=== PATIENT | male | born 1985 | race Two or more races ===

== ENCOUNTER 2018-08-29 13:45 | Emergency (ER) | payer MEDICAID ==
[~2018-08-29] VITALS: Ht 162.6 cm; Wt 79.0 kg
[2018-08-29] MEDS ORDERED: CEFAZOLIN 1000MG PREMIX 50 ML IV ONE (14:45)
[2018-08-29] MEDS ORDERED: LIDOCAINE HCL/PF 1% 10 MG/ML 5ML VIAL IJ ONE (14:45)
[2018-08-29] MEDS ORDERED: BACITRACIN ZINC OINT UDPKT TOP ONE (14:45)
[2018-08-29] MEDS ORDERED: BACITRACIN 15GM TUBE TOP NR (15:00)
[2018-08-29] MEDS ORDERED: MORPHINE SULFATE 4 MG/ML CPJ (NOT FOR IM USE) IV ONE ×2 (16:00→17:00)
[2018-08-29 18:54] VITALS: BP 144/81
== END 2018-08-29 19:01 | disposition home or self-care (01) ==
LOC: ER 13:45
DX: S61.411A Laceration without foreign body of right hand, initial encounter (principal); X99.9XXA Assault by unspecified sharp object, initial encounter; Y93.89 Activity, other specified; Y92.488 Other paved roadways as the place of occurrence of the external cause
CPT/HCPCS: 12001; 73130; 96365; 96375; 96376; 99283; J0690; J2270; J3490; Z7610

== ENCOUNTER 2019-11-24 18:01 | Emergency (ER) | payer MEDICAID ==
[~2019-11-24] VITALS: Ht 162.6 cm; Wt 82.0 kg
[2019-11-24] MEDS ORDERED: MORPHINE SULFATE 10 MG/ML CPJ IM ONE (19:00)
[2019-11-24 20:04] VITALS: BP 133/95
== END 2019-11-24 20:05 | disposition home or self-care (01) ==
LOC: ER 18:01
DX: M54.40 Lumbago with sciatica, unspecified side (principal); G89.29 Other chronic pain; R03.0 Elevated blood-pressure reading, without diagnosis of hypertension
CPT/HCPCS: 96372; 99283; J2270

== ENCOUNTER 2020-01-27 14:13 | Emergency (ER) | payer MEDICAID ==
[~2020-01-27] VITALS: Ht 162.6 cm; Wt 81.0 kg
[2020-01-27] MEDS ORDERED: KETOROLAC 30MG/ML VIAL IV STA (16:34)
[2020-01-27] MEDS ORDERED: HYDROCODONE/ACETAMINOPHEN 5/325MG TABLET PO STA (16:34)
[2020-01-27] MEDS ORDERED: GABAPENTIN 300MG CAPSULE PO STA (16:34)
[2020-01-27 17:12] LABS: CLARITY URINE CLEAR (CLEAR); COLOR URINE YELLOW (YELLOW); KETONES URINE NEGATIVE (NEGATIVE); LEUKOCYTE ESTERASE URINE NEGATIVE (NEGATIVE); NITRITE URINE NEGATIVE (NEGATIVE); OCCULT BLOOD URINE NEGATIVE (NEGATIVE); PROTEIN URINE NEGATIVE (NEGATIVE); SPECIFIC GRAVITY URINE 1.017 (1.005-1.030); UROBILINOGEN URINE 0.2 E.U./dL (0.2-1.0)
[2020-01-27 17:38] LABS: BASOPHILS % 0.7 % (0.0-2.0); HEMATOCRIT. 47.6 % (42.0-52.0); HEMOGLOBIN. 16.4 g/dL (14.0-18.0); MEAN CORPUSCULAR HEMOGLOBIN 33.6 pg (28.0-32.0); MEAN CORPUSCULAR VOLUME 97.4 fL (80.0-94.0); MEAN PLATELET VOLUME 8.1 fl (7.4-10.4); MONOCYTES % 10.5 % (2.0-8.0); NEUTROPHILS % 54.8 % (40.0-76.0); PLATELET 172 x1000/uL (130-400); RED BLOOD CELL COUNT 4.89 mill/uL (4.7-6.1); RED CELL DISTRIBUTION WIDTH 13.2 % (11.6-14.6)
[2020-01-27 17:46] LABS: CHLORIDE 108 mEq/L (98-107)
[2020-01-27] MEDS ORDERED: HYDROMORPHONE HCL/PF 2MG/ML CPJ IV ONE (21:00)
[2020-01-27] MEDS ORDERED: ONDANSETRON HCL 4MG/2ML INJ IV ONE (21:45)
[2020-01-28] MEDS ORDERED: MORPHINE SULFATE 4 MG/ML CPJ (NOT FOR IM USE) IV ONE (00:15)
[2020-01-28 01:26] VITALS: BP 136/84
== END 2020-01-28 01:27 | disposition home or self-care (01) ==
LOC: ER 14:13
DX: M54.42 Lumbago with sciatica, left side (principal)
CPT/HCPCS: 36415; 80053; 81003; 85025; 96374; 96375; 99284; J1170; J1885; J2270; J2405

== ENCOUNTER 2020-06-15 10:36 | Emergency (ER) | payer MEDICAID ==
[~2020-06-15] VITALS: Ht 165.1 cm; Wt 81.0 kg
[2020-06-15 11:45] LABS: CLARITY URINE CLEAR (CLEAR); COLOR URINE DARK YELLOW (YELLOW); KETONES URINE TRACE (NEGATIVE); LEUKOCYTE ESTERASE URINE NEGATIVE (NEGATIVE); NITRITE URINE NEGATIVE (NEGATIVE); OCCULT BLOOD URINE TRACE (NEGATIVE); PROTEIN URINE 2+ (NEGATIVE); SPECIFIC GRAVITY URINE 1.016 (1.005-1.030)
[2020-06-15 11:48] LABS: BASOPHILS % 0.8 % (0.0-2.0); EOSINOPHILS % 1.3 % (0.0-5.0); HEMATOCRIT. 48.8 % (42.0-52.0); HEMOGLOBIN. 16.9 g/dL (14.0-18.0); LYMPHOCYTES % 35.9 % (20.0-50.0); MEAN CORPUSCULAR HEMOGLOBIN 32.9 pg (28.0-32.0); MEAN CORPUSCULAR VOLUME 95.1 fL (80.0-94.0); MONOCYTES % 8.9 % (2.0-8.0); NEUTROPHILS % 53.1 % (40.0-76.0); PLATELET 201 x1000/uL (130-400); RED BLOOD CELL COUNT 5.14 mill/uL (4.7-6.1); RED CELL DISTRIBUTION WIDTH 13.7 % (11.6-14.6)
[2020-06-15 11:52] LABS: CHLORIDE 103 mEq/L (98-107)
[2020-06-15 11:53] LABS: INR 1.1; PROTHROMBIN TIME 11.7 sec (9.6-11.0)
[2020-06-15 11:57] LABS: *AMPHETAMINES SCREEN URINE NEGATIVE (NEGATIVE); *BARBITURATES SCREEN URINE NEGATIVE (NEGATIVE); *COCAINE SCREEN URINE NEGATIVE (NEGATIVE); CANNABINOID URINE SCREEN NEGATIVE (NEGATIVE); METHADONE URINE SCREEN NEGATIVE (NEGATIVE); OPIATES URINE SCREEN NEGATIVE (NEGATIVE); PHENCYCLIDINE URINE SCREEN NEGATIVE (NEGATIVE)
[2020-06-15 11:57] LABS: ETHANOL BLOOD 258 mg/dL
[2020-06-15 11:58] LABS: *BENZODIAZEPINES SCREEN URINE NEGATIVE (NEGATIVE)
[2020-06-15] MEDS ORDERED: KETOROLAC 60MG/2ML VIAL IM ONE (13:15)
[2020-06-15] MEDS ORDERED: OXYCODONE HCL/ACETAMINOPHEN 5/325MG TABLET PO ONE (13:15)
[2020-06-15] MEDS ORDERED: ONDANSETRON 4MG ODT PO ONE (13:15)
[2020-06-15] MEDS ORDERED: DICL50TA9 MT (13:18)
[2020-06-15] MEDS ORDERED: OXYC-100 MT (13:18)
[2020-06-15 14:46] VITALS: BP 159/97
== END 2020-06-15 14:54 | disposition home or self-care (01) ==
LOC: ER 10:36
DX: G89.29 Other chronic pain (principal); M54.40 Lumbago with sciatica, unspecified side; I49.9 Cardiac arrhythmia, unspecified
CPT/HCPCS: 36415; 71045; 80053; 80305; 80320; 81003; 83690; 85025; 85610; 93005; 96372; 99285; A4217; J1885; Q0162; Z7610; G0480

== ENCOUNTER 2020-07-01 07:21 | Emergency (ER) | payer MEDICAID ==
[~2020-07-01] VITALS: Ht 167.6 cm; Wt 75.0 kg
[~2020-07-01 07:21] MED LIST: DICL50TA9 MT; OXYC-100 MT
[2020-07-01] MEDS ORDERED: ONDANSETRON HCL 4MG/2ML INJ IV STA (07:55)
[2020-07-01] MEDS ORDERED: LORAZEPAM 2MG/ML CPJ IV ONE (08:00)
[2020-07-01] MEDS ORDERED: SODIUM CHLORIDE 0.9% 1,000 ML IV ONE (08:00)
[2020-07-01] MEDS ORDERED: FAMOTIDINE 20MG/2ML VIAL IV ONE (08:00)
[2020-07-01 08:12] LABS: BASOPHILS % 0.9 % (0.0-2.0); EOSINOPHILS % 0.9 % (0.0-5.0); HEMATOCRIT. 48.6 % (42.0-52.0); HEMOGLOBIN. 16.4 g/dL (14.0-18.0); LYMPHOCYTES % 26.6 % (20.0-50.0); MEAN CORPUSCULAR HEMOGLOBIN 32.6 pg (28.0-32.0); MEAN CORPUSCULAR VOLUME 96.6 fL (80.0-94.0); MEAN PLATELET VOLUME 6.7 fl (7.4-10.4); NEUTROPHILS % 63.6 % (40.0-76.0); PLATELET 275 x1000/uL (130-400); RED BLOOD CELL COUNT 5.03 mill/uL (4.7-6.1); RED CELL DISTRIBUTION WIDTH 13.5 % (11.6-14.6)
[2020-07-01 08:17] LABS: CHLORIDE 103 mEq/L (98-107)
[2020-07-01 08:21] LABS: ETHANOL BLOOD 66 mg/dL
[2020-07-01] MEDS ORDERED: MAGNESIUM/ALUMINUM HYDROXIDE/SIMETHICONE 30ML UDC PO STA (09:40)
[2020-07-01] MEDS ORDERED: VISCOUS LIDOCAINE 2% 15 ML UDC PO STA (09:40)
[2020-07-01 09:52] LABS: CLARITY URINE CLEAR (CLEAR); COLOR URINE YELLOW (YELLOW); KETONES URINE 1+ (NEGATIVE); LEUKOCYTE ESTERASE URINE TRACE (NEGATIVE); NITRITE URINE NEGATIVE (NEGATIVE); OCCULT BLOOD URINE NEGATIVE (NEGATIVE); PROTEIN URINE TRACE (NEGATIVE)
[2020-07-01 10:07] LABS: *BARBITURATES SCREEN URINE NEGATIVE (NEGATIVE); *BENZODIAZEPINES SCREEN URINE NEGATIVE (NEGATIVE); *COCAINE SCREEN URINE NEGATIVE (NEGATIVE)
[2020-07-01 10:08] LABS: CANNABINOID URINE SCREEN NEGATIVE (NEGATIVE); METHADONE URINE SCREEN NEGATIVE (NEGATIVE); OPIATES URINE SCREEN NEGATIVE (NEGATIVE); PHENCYCLIDINE URINE SCREEN NEGATIVE (NEGATIVE)
[2020-07-01 10:09] LABS: *AMPHETAMINES SCREEN URINE NEGATIVE (NEGATIVE)
[2020-07-01] MEDS ORDERED: IOHEXOL-300 100 ML BOTTLE ONE (11:13)
[2020-07-01] MEDS ORDERED: IBUP-2028 MT (11:31)
[2020-07-01] MEDS ORDERED: ONDA4TAB5 MT (11:31)
[2020-07-01] MEDS ORDERED: AMOX-424 MT (11:31)
[2020-07-01] MEDS ORDERED: HYDROCODONE/ACETAMINOPHEN 5/325MG TABLET PO ONE (12:00)
[2020-07-01 12:07] VITALS: BP 128/86
== END 2020-07-01 12:45 | disposition home or self-care (01) ==
LOC: ER 07:21
DX: K52.9 Noninfective gastroenteritis and colitis, unspecified (principal); K80.80 Other cholelithiasis without obstruction; M54.30 Sciatica, unspecified side; F17.210 Nicotine dependence, cigarettes, uncomplicated; F10.10 Alcohol abuse, uncomplicated; Y90.3 Blood alcohol level of 60-79 mg/100 ml
CPT/HCPCS: 36415; 71045; 74177; 80053; 80305; 80320; 81003; 83690; 84484; 85025; 96361; 96374; 96375; 99285; J2060; J2405; J3490; J7030; Q9967; Z7610; G0480

== ENCOUNTER 2020-09-20 11:02 | Inpatient (IN) | payer MEDICAID ==
[~2020-09-20] VITALS: Ht 165.1 cm; Wt 80.7 kg
[~2020-09-20 11:02] MED LIST changes: +AMOX-424 MT; +IBUP-2028 MT; +ONDA4TAB5 MT
[2020-09-20] MEDS ORDERED: MORPHINE SULFATE 4 MG/ML CPJ (NOT FOR IM USE) IV STA (12:33)
[2020-09-20] MEDS ORDERED: ONDANSETRON HCL 4MG/2ML INJ IV STA (12:33)
[2020-09-20] MEDS ORDERED: SODIUM CHLORIDE 0.9% 1000ML BAG (SEPSIS BOLUS) IV ONE (12:45)
[2020-09-20] MEDS ORDERED: VISCOUS LIDOCAINE 2% 15 ML UDC MM ONE (13:00)
[2020-09-20] MEDS ORDERED: MAGNESIUM/ALUMINUM HYDROXIDE/SIMETHICONE 30ML UDC PO ONE (13:00)
[2020-09-20] MEDS ORDERED: FAMOTIDINE 20MG/2ML VIAL IV ONE ×2 (13:00→20:00)
[2020-09-20 13:27] LABS: BASOPHILS % 0.5 % (0.0-2.0); EOSINOPHILS % 0.3 % (0.0-5.0); HEMATOCRIT. 47.6 % (42.0-52.0); HEMOGLOBIN. 16.2 g/dL (14.0-18.0); LYMPHOCYTES % 20.6 % (20.0-50.0); MEAN CORPUSCULAR HEMOGLOBIN 32.3 pg (28.0-32.0); MEAN CORPUSCULAR VOLUME 94.7 fL (80.0-94.0); MEAN PLATELET VOLUME 7.2 fl (7.4-10.4); MONOCYTES % 8.4 % (2.0-8.0); NEUTROPHILS % 70.2 % (40.0-76.0); PLATELET 270 x1000/uL (130-400); RED BLOOD CELL COUNT 5.03 mill/uL (4.7-6.1); RED CELL DISTRIBUTION WIDTH 12.9 % (11.6-14.6)
[2020-09-20 13:30] LABS: CHLORIDE 106 mEq/L (98-107)
[2020-09-20 13:35] LABS: INR 1.1; PROTHROMBIN TIME 11.6 sec (9.6-11.0)
[2020-09-20 14:45] LABS: CLARITY URINE CLEAR (CLEAR); COLOR URINE YELLOW (YELLOW); KETONES URINE NEGATIVE (NEGATIVE); LEUKOCYTE ESTERASE URINE NEGATIVE (NEGATIVE); NITRITE URINE NEGATIVE (NEGATIVE); OCCULT BLOOD URINE NEGATIVE (NEGATIVE); PROTEIN URINE NEGATIVE (NEGATIVE); SPECIFIC GRAVITY URINE 1.011 (1.005-1.030)
[2020-09-20] MEDS ORDERED: HYDROMORPHONE HCL/PF 2MG/ML CPJ IV NR (17:45)
[2020-09-20] MEDS ORDERED: ONDANSETRON HCL 4MG/2ML INJ IV ONE (20:00)
[2020-09-20] MEDS: SUCRALFATE 1 G/10 ML UDC PO SCH (21:25)
[2020-09-20 23:55] VITALS: BP 143/92
[2020-09-21] MEDS ORDERED: FAMO-135 MT (00:51)
[2020-09-21] MEDS ORDERED: HYDR-4009 MT (00:51)
[2020-09-21] MEDS ORDERED: DIAZ5TAB MT (00:51)
[2020-09-21] MEDS ORDERED: IBUP-2030 MT (00:51)
[2020-09-21 00:52] VITALS: BP 144/92
[2020-09-21] MEDS ORDERED: PNEUMOCOCCAL 23-VAL P-SAC VAC 0.5 ML IM ONE (02:00)
[2020-09-21 04:00] VITALS: BP 141/87
[2020-09-21] MEDS ORDERED: ACETAMINOPHEN 650MG SUPP PR PRN (06:30)
[2020-09-21] MEDS: SUCRALFATE 1 G/10 ML UDC PO SCH ×4 (06:30→22:51)
[2020-09-21] MEDS ORDERED: NALOXONE HCL 0.4MG/ML VIAL IV PRN (06:45)
[2020-09-21 06:49] LABS: CHLORIDE 101 mEq/L (98-107)
[2020-09-21] MEDS: MORPHINE SULFATE 2 MG/ML CPJ (NOT FOR IM USE) IV PRN (06:57)
[2020-09-21 07:05] LABS: BASOPHILS % 0.3 % (0.0-2.0); EOSINOPHILS % 1.4 % (0.0-5.0); HEMATOCRIT. 45.2 % (42.0-52.0); HEMOGLOBIN. 15.2 g/dL (14.0-18.0); LYMPHOCYTES % 22.2 % (20.0-50.0); MEAN CORPUSCULAR HEMOGLOBIN 32.6 pg (28.0-32.0); MEAN CORPUSCULAR VOLUME 96.5 fL (80.0-94.0); MEAN PLATELET VOLUME 7.7 fl (7.4-10.4); MONOCYTES % 7.1 % (2.0-8.0); PLATELET 206 x1000/uL (130-400); RED BLOOD CELL COUNT 4.68 mill/uL (4.7-6.1); RED CELL DISTRIBUTION WIDTH 12.8 % (11.6-14.6)
[2020-09-21 08:00] VITALS: BP 148/98
[2020-09-21] MEDS: ONDANSETRON HCL 4MG/2ML INJ IV PRN ×2 (09:22→21:51)
[2020-09-21] MEDS: HYDROMORPHONE HCL/PF 2MG/ML CPJ IV PRN ×3 (09:24→21:52)
[2020-09-21 12:00] VITALS: BP 156/102
[2020-09-21] MEDS: DEXT 5%/0.45% NACL 1000ML 1,000 ML IV SCH ×2 (13:32→21:58)
[2020-09-21 16:00] VITALS: BP 155/101
[2020-09-21 20:00] VITALS: BP 147/92
[2020-09-22] VITALS: BP 150/98
[2020-09-22 04:00] VITALS: BP 153/95
[2020-09-22] MEDS: HYDROMORPHONE HCL/PF 2MG/ML CPJ IV PRN ×2 (04:50→11:26)
[2020-09-22] MEDS: SUCRALFATE 1 G/10 ML UDC PO SCH ×2 (06:31→13:33)
[2020-09-22 06:48] LABS: BASOPHILS % 0.3 % (0.0-2.0); HEMATOCRIT. 43.2 % (42.0-52.0); LYMPHOCYTES % 24.8 % (20.0-50.0); MEAN CORPUSCULAR HEMOGLOBIN 33.2 pg (28.0-32.0); MEAN CORPUSCULAR VOLUME 95.8 fL (80.0-94.0); MEAN PLATELET VOLUME 7.9 fl (7.4-10.4); MONOCYTES % 8.6 % (2.0-8.0); NEUTROPHILS % 64.3 % (40.0-76.0); PLATELET 207 x1000/uL (130-400); RED BLOOD CELL COUNT 4.51 mill/uL (4.7-6.1); RED CELL DISTRIBUTION WIDTH 12.8 % (11.6-14.6)
[2020-09-22 07:03] LABS: CHLORIDE 102 mEq/L (98-107)
[2020-09-22] MEDS: MORPHINE SULFATE 2 MG/ML CPJ (NOT FOR IM USE) IV PRN (13:50)
[2020-09-22] MEDS ORDERED: CLONIDINE 0.1MG TABLET PO PRN (17:00)
[2020-09-22] MEDS ORDERED: LORAZEPAM 2MG/ML CPJ IV PRN (17:00)
[2020-09-22 18:44] VITALS: BP 147/100
== END 2020-09-22 19:10 | disposition home or self-care (01) ==
LOC: ER 11:02 → MICUSO 21:12 → 6EST 23:03
PROVIDERS: ADMIT Hospitalist; ATTEND Hospitalist
DX: K80.00 Calculus of gallbladder with acute cholecystitis without obstruction (principal); K76.0 Fatty (change of) liver, not elsewhere classified; F12.90 Cannabis use, unspecified, uncomplicated; Z20.822 Contact with and (suspected) exposure to COVID-19; F17.200 Nicotine dependence, unspecified, uncomplicated; Z79.1 Long term (current) use of non-steroidal anti-inflammatories (NSAID); Z79.891 Long term (current) use of opiate analgesic
CPT/HCPCS: 36415; 71045; 74176; 74181; 76705; 78227; 80053; 81003; 83605; 84145; 84484; 85025; 93005; 99285; A9537; C1893; J1170; J2060; J2270; J2405; J3490; J7030; U0003; U0005

== ENCOUNTER 2020-09-28 12:34 | Emergency (ER) | payer MEDICAID ==
[~2020-09-28] VITALS: Ht 162.6 cm; Wt 85.0 kg
[~2020-09-28 12:34] MED LIST changes: +DIAZ5TAB MT; +FAMO-135 MT; +HYDR-4009 MT; +IBUP-2030 MT
[2020-09-28] MEDS ORDERED: ONDANSETRON HCL 4MG/2ML INJ IV ONE (16:00)
[2020-09-28] MEDS ORDERED: SODIUM CHLORIDE 0.9% 1,000 ML IV ONE (16:00)
[2020-09-28 16:17] LABS: BASOPHILS % 0.4 % (0.0-2.0); EOSINOPHILS % 0.2 % (0.0-5.0); HEMATOCRIT. 47.1 % (42.0-52.0); LYMPHOCYTES % 16.2 % (20.0-50.0); MEAN CORPUSCULAR HEMOGLOBIN 32.1 pg (28.0-32.0); MEAN CORPUSCULAR VOLUME 94.4 fL (80.0-94.0); MEAN PLATELET VOLUME 7.1 fl (7.4-10.4); MONOCYTES % 9.2 % (2.0-8.0); PLATELET 217 x1000/uL (130-400); RED BLOOD CELL COUNT 4.99 mill/uL (4.7-6.1)
[2020-09-28 16:22] LABS: CHLORIDE 101 mEq/L (98-107)
[2020-09-28] MEDS ORDERED: MAGNESIUM/ALUMINUM HYDROXIDE/SIMETHICONE 30ML UDC PO STA (17:00)
[2020-09-28] MEDS ORDERED: PROT40 MT (18:58)
[2020-09-28] MEDS ORDERED: PANTOPRAZOLE 40MG DR TABLET PO ONE (19:00)
[2020-09-28 19:05] VITALS: BP 139/74
== END 2020-09-28 19:08 | disposition home or self-care (01) ==
LOC: ER 17:29
DX: K21.9 Gastro-esophageal reflux disease without esophagitis (principal); F12.10 Cannabis abuse, uncomplicated; Z79.899 Other long term (current) drug therapy
CPT/HCPCS: 36415; 71045; 80053; 83690; 84484; 85025; 93005; 96361; 96374; 99285; J2405; J7030; Z7610

== ENCOUNTER 2020-10-11 06:46 | Inpatient (IN) | payer MEDICAID ==
[~2020-10-11] VITALS: Ht 160 cm; Wt 88.5 kg
[~2020-10-11 06:46] MED LIST changes: +PROT40 MT
[2020-10-11] MEDS ORDERED: ONDANSETRON HCL 4MG/2ML INJ IV STA (08:06)
[2020-10-11] MEDS ORDERED: MORPHINE SULFATE 4 MG/ML CPJ (NOT FOR IM USE) IV STA (08:06)
[2020-10-11 08:45] LABS: BASOPHILS % 0.5 % (0.0-2.0); EOSINOPHILS % 0.4 % (0.0-5.0); HEMATOCRIT. 44.4 % (42.0-52.0); HEMOGLOBIN. 15.3 g/dL (14.0-18.0); LYMPHOCYTES % 15.6 % (20.0-50.0); MEAN CORPUSCULAR HEMOGLOBIN 32.2 pg (28.0-32.0); MEAN CORPUSCULAR VOLUME 93.8 fL (80.0-94.0); MEAN PLATELET VOLUME 6.8 fl (7.4-10.4); MONOCYTES % 7.7 % (2.0-8.0); NEUTROPHILS % 75.8 % (40.0-76.0); PLATELET 364 x1000/uL (130-400); RED BLOOD CELL COUNT 4.73 mill/uL (4.7-6.1); RED CELL DISTRIBUTION WIDTH 13.3 % (11.6-14.6)
[2020-10-11 08:48] LABS: CHLORIDE 106 mEq/L (98-107)
[2020-10-11 08:56] LABS: INR 1.1; PROTHROMBIN TIME 12.2 sec (9.6-11.0)
[2020-10-11] MEDS ORDERED: MORPHINE SULFATE 4 MG/ML CPJ (NOT FOR IM USE) IV ONE (09:45)
[2020-10-11] MEDS ORDERED: DIPHENHYDRAMINE 50MG/ML VIAL IV PRN (12:00)
[2020-10-11] MEDS ORDERED: CLONIDINE 0.1MG TABLET PO PRN (12:00)
[2020-10-11] MEDS ORDERED: IPRATROPIUM/ALBUTEROL 0.5-3(2.5)MG/3ML NEB HHN PRN (12:00)
[2020-10-11] MEDS ORDERED: MAGNESIUM/ALUMINUM HYDROXIDE/SIMETHICONE 30ML UDC PO PRN (12:00)
[2020-10-11] MEDS ORDERED: HYDRALAZINE 20MG/ML VIAL IV PRN (12:00)
[2020-10-11] MEDS ORDERED: GUAIFENESIN 200MG/10ML SUGAR FREE UDC PO PRN (12:00)
[2020-10-11] MEDS: DEXT 5%/0.45% NACL 1000ML 1,000 ML IV SCH (12:08)
[2020-10-11] MEDS: ENOXAPARIN 40MG/0.4ML SYR SUBCUT SCH (13:36)
[2020-10-11] MEDS: SODIUM CHLORIDE 0.9% INJ 3ML FLUSH IVF SCH ×2 (13:36→21:33)
[2020-10-11 15:00] VITALS: BP 148/103
[2020-10-11] MEDS: PANTOPRAZOLE SODIUM 40 MG/VIAL IV SCH (15:05)
[2020-10-11 15:37] VITALS: BP 148/103
[2020-10-11] MEDS ORDERED: NALOXONE HCL 0.4MG/ML VIAL IV PRN (16:15)
[2020-10-11] MEDS: MORPHINE SULFATE 2 MG/ML CPJ (NOT FOR IM USE) IV PRN (16:37)
[2020-10-11] MEDS: ONDANSETRON HCL 4MG/2ML INJ IV PRN (16:42)
[2020-10-11 17:46] LABS: CLARITY URINE CLEAR (CLEAR); COLOR URINE YELLOW (YELLOW); KETONES URINE TRACE (NEGATIVE); LEUKOCYTE ESTERASE URINE NEGATIVE (NEGATIVE); NITRITE URINE NEGATIVE (NEGATIVE); OCCULT BLOOD URINE TRACE (NEGATIVE); PROTEIN URINE NEGATIVE (NEGATIVE); SPECIFIC GRAVITY URINE 1.015 (1.005-1.030)
[2020-10-11 20:00] VITALS: BP 143/84
[2020-10-11 21:28] LABS: *COCAINE SCREEN URINE NEGATIVE (NEGATIVE)
[2020-10-11 21:29] LABS: *AMPHETAMINES SCREEN URINE NEGATIVE (NEGATIVE); *BARBITURATES SCREEN URINE NEGATIVE (NEGATIVE); CANNABINOID URINE SCREEN NEGATIVE (NEGATIVE); METHADONE URINE SCREEN NEGATIVE (NEGATIVE); OPIATES URINE SCREEN PRESUMTIVE POSITIVE (NEGATIVE)
[2020-10-11 21:30] LABS: *BENZODIAZEPINES SCREEN URINE NEGATIVE (NEGATIVE); PHENCYCLIDINE URINE SCREEN NEGATIVE (NEGATIVE)
[2020-10-12] VITALS (8 sets, daily range): BP systolic 121–147; BP diastolic 74–95
[2020-10-12] MEDS: MORPHINE SULFATE 2 MG/ML CPJ (NOT FOR IM USE) IV PRN ×4 (00:11→20:17)
[2020-10-12] MEDS: DEXT 5%/0.45% NACL 1000ML 1,000 ML IV SCH ×2 (04:45→21:29)
[2020-10-12] MEDS: SODIUM CHLORIDE 0.9% INJ 3ML FLUSH IVF SCH ×3 (05:32→21:29)
[2020-10-12] MEDS: PANTOPRAZOLE SODIUM 40 MG/VIAL IV SCH (07:49)
[2020-10-12 08:36] LABS: BASOPHILS % 0.5 % (0.0-2.0); EOSINOPHILS % 1.8 % (0.0-5.0); HEMATOCRIT. 44.2 % (42.0-52.0); HEMOGLOBIN. 15.3 g/dL (14.0-18.0); MEAN CORPUSCULAR HEMOGLOBIN 33.1 pg (28.0-32.0); MEAN CORPUSCULAR VOLUME 95.4 fL (80.0-94.0); NEUTROPHILS % 64.7 % (40.0-76.0); PLATELET 350 x1000/uL (130-400); RED BLOOD CELL COUNT 4.63 mill/uL (4.7-6.1); RED CELL DISTRIBUTION WIDTH 13.4 % (11.6-14.6)
[2020-10-12 09:13] LABS: CHLORIDE 102 mEq/L (98-107)
[2020-10-12] MEDS: ENOXAPARIN 40MG/0.4ML SYR SUBCUT SCH (13:21)
[2020-10-12] MEDS: LORAZEPAM 2MG/ML CPJ IV PRN (15:32)
[2020-10-12] MEDS: ONDANSETRON HCL 4MG/2ML INJ IV PRN (20:27)
[2020-10-13] VITALS: BP 103/73
[2020-10-13] MEDS: LORAZEPAM 2MG/ML CPJ IV PRN ×2 (00:04→20:39)
[2020-10-13 04:00] VITALS: BP 109/72
[2020-10-13] MEDS: MORPHINE SULFATE 2 MG/ML CPJ (NOT FOR IM USE) IV PRN (04:15)
[2020-10-13] MEDS: SODIUM CHLORIDE 0.9% INJ 3ML FLUSH IVF SCH ×3 (05:53→22:26)
[2020-10-13 07:48] LABS: BASOPHILS % 0.5 % (0.0-2.0); CHLORIDE 104 mEq/L (98-107); EOSINOPHILS % 2.6 % (0.0-5.0); HEMATOCRIT. 45.2 % (42.0-52.0); HEMOGLOBIN. 15.7 g/dL (14.0-18.0); LYMPHOCYTES % 26.7 % (20.0-50.0); MEAN CORPUSCULAR HEMOGLOBIN 33.1 pg (28.0-32.0); MEAN CORPUSCULAR VOLUME 95.4 fL (80.0-94.0); MEAN PLATELET VOLUME 7.2 fl (7.4-10.4); MONOCYTES % 10.3 % (2.0-8.0); NEUTROPHILS % 59.9 % (40.0-76.0); PLATELET 336 x1000/uL (130-400); RED BLOOD CELL COUNT 4.73 mill/uL (4.7-6.1); RED CELL DISTRIBUTION WIDTH 13.4 % (11.6-14.6)
[2020-10-13 08:00] VITALS: BP 118/57
[2020-10-13] MEDS: PANTOPRAZOLE SODIUM 40 MG/VIAL IV SCH (08:20)
[2020-10-13] MEDS ORDERED: INDOCYANINE GREEN 25 MG VIAL IV ONE (08:47)
[2020-10-13] MEDS ORDERED: SKIN ADHESIVE 0.7 GM EA TOP ONE (08:47)
[2020-10-13] MEDS ORDERED: POLYMYXIN B SULFATE 500000 UNITS/VIAL ONE (08:48)
[2020-10-13] MEDS ORDERED: SODIUM CHLORIDE 0.9% INJ 10ML FLUSH IVF ONE (08:48)
[2020-10-13] MEDS ORDERED: LIDOCAINE HCL 1% 20ML VIAL (Pyxis) INJ ONE (08:48)
[2020-10-13] MEDS ORDERED: BUPIVACAINE HCL/PF 0.5% (5MG/ML) 10ML ONE (08:48)
[2020-10-13] MEDS ORDERED: FENTANYL CITRATE/PF 50MCG/ML 2ML VIAL ONE ×2 (09:18→09:44)
[2020-10-13] MEDS ORDERED: ONDANSETRON HCL 4MG/2ML INJ ONE ×2 (09:18→09:56)
[2020-10-13] MEDS ORDERED: PROPOFOL 200MG/20ML VIAL IV ONE ×2 (09:18→09:45)
[2020-10-13] MEDS ORDERED: MIDAZOLAM HCL 2 MG/2 ML VIAL ONE ×2 (09:18→09:45)
[2020-10-13] MEDS ORDERED: ROCURONIUM BROMIDE 10MG/ML VIAL 5ML IV ONE (09:44)
[2020-10-13] MEDS ORDERED: NEOSTIGMINE METHYLSULFATE 1MG/ML 10 ML VIAL ONE (09:45)
[2020-10-13] MEDS ORDERED: GLYCOPYRROLATE 0.2 MG/ML 2ML VIAL ONE (09:45)
[2020-10-13] MEDS ORDERED: DEXAMETHASONE 4MG/ML 1ML VIAL ONE (09:56)
[2020-10-13] MEDS ORDERED: MEPERIDINE HCL/PF 25MG/ML CPJ IV PRN (10:00)
[2020-10-13] MEDS ORDERED: HYDROMORPHONE HCL/PF 2MG/ML CPJ IV PRN (10:00)
[2020-10-13] MEDS ORDERED: LABETALOL 5MG/ML SYR 20 MG/4 ML SYRINGE IV PRN (10:00)
[2020-10-13] MEDS ORDERED: ONDANSETRON HCL 4MG/2ML INJ IV PRN (10:00)
[2020-10-13] MEDS ORDERED: HYDROMORPHONE HCL/PF 2MG/ML (OR) ONE (11:40)
[2020-10-13 12:00] VITALS: BP 121/58
[2020-10-13] MEDS: ONDANSETRON HCL 4MG/2ML INJ IV PRN (14:45)
[2020-10-13] MEDS: DEXT 5%/0.45% NACL 1000ML 1,000 ML IV SCH (14:46)
[2020-10-13 15:28] LABS: HEMATOCRIT. 44.5 % (42.0-52.0); HEMOGLOBIN. 15.3 g/dL (14.0-18.0); MEAN CORPUSCULAR VOLUME 95.9 fL (80.0-94.0); MEAN PLATELET VOLUME 6.9 fl (7.4-10.4); PLATELET 320 x1000/uL (130-400); RED BLOOD CELL COUNT 4.64 mill/uL (4.7-6.1); RED CELL DISTRIBUTION WIDTH 13.2 % (11.6-14.6)
[2020-10-13 16:00] VITALS: BP 128/79
[2020-10-13 16:11] LABS: PLATELET ESTIMATE NORMAL
[2020-10-13] MEDS: HYDROMORPHONE HCL/PF 2MG/ML CPJ IV PRN (17:41)
[2020-10-13 20:00] VITALS: BP 122/84
[2020-10-14] VITALS: BP 134/94
[2020-10-14] MEDS: ONDANSETRON HCL 4MG/2ML INJ IV PRN ×2 (00:13→06:22)
[2020-10-14] MEDS: HYDROMORPHONE HCL/PF 2MG/ML CPJ IV PRN ×4 (00:14→18:06)
[2020-10-14 04:00] VITALS: BP 122/90
[2020-10-14] MEDS: LORAZEPAM 2MG/ML CPJ IV PRN ×3 (04:12→20:32)
[2020-10-14] MEDS: SODIUM CHLORIDE 0.9% INJ 3ML FLUSH IVF SCH ×3 (05:43→20:26)
[2020-10-14] MEDS: DEXT 5%/0.45% NACL 1000ML 1,000 ML IV SCH (06:28)
[2020-10-14 08:00] VITALS: BP 141/66
[2020-10-14] MEDS: PANTOPRAZOLE SODIUM 40 MG/VIAL IV SCH (08:44)
[2020-10-14 09:49] LABS: CHLORIDE 104 mEq/L (98-107)
[2020-10-14 12:00] VITALS: BP 144/90
[2020-10-14 16:00] VITALS: BP 135/96
[2020-10-14] MEDS: FAMOTIDINE 20MG TABLET PO SCH (17:14)
[2020-10-14 20:00] VITALS: BP 136/92
[2020-10-14] MEDS: DOCUSATE SODIUM 100MG CAPSULE PO PRN (23:59)
[2020-10-15] VITALS: BP 180/123
[2020-10-15] MEDS: LORAZEPAM 2MG/ML CPJ IV PRN ×2 (00:48→20:17)
[2020-10-15] MEDS: ACETAMINOPHEN 325MG TABLET PO PRN (00:48)
[2020-10-15 04:00] VITALS: BP 143/107
[2020-10-15] MEDS: SODIUM CHLORIDE 0.9% INJ 3ML FLUSH IVF SCH ×3 (06:23→21:18)
[2020-10-15] MEDS: FAMOTIDINE 20MG TABLET PO SCH ×2 (06:23→16:46)
[2020-10-15] MEDS: HYDROMORPHONE HCL/PF 2MG/ML CPJ IV PRN ×4 (06:29→18:46)
[2020-10-15 08:00] VITALS: BP 144/87
[2020-10-15] MEDS ORDERED: FAMOTIDINE 20MG/2ML VIAL IV SCH (09:00)
[2020-10-15 12:00] VITALS: BP 134/92
[2020-10-15] MEDS: ONDANSETRON HCL 4MG/2ML INJ IV PRN ×2 (15:12)
[2020-10-15] MEDS: DEXT 5%/0.45% NACL 1000ML 1,000 ML IV SCH ×2 (15:12)
[2020-10-15 16:00] VITALS: BP 146/96
[2020-10-15 20:00] VITALS: BP 139/97
[2020-10-15] MEDS: DOCUSATE SODIUM 100MG CAPSULE PO PRN (21:18)
[2020-10-16] VITALS (7 sets, daily range): BP systolic 135–156; BP diastolic 93–105
[2020-10-16] MEDS: ONDANSETRON HCL 4MG/2ML INJ IV PRN ×2 (00:30→06:34)
[2020-10-16] MEDS: HYDROMORPHONE HCL/PF 2MG/ML CPJ IV PRN ×4 (00:30→19:00)
[2020-10-16] MEDS: LORAZEPAM 2MG/ML CPJ IV PRN ×2 (01:35→08:59)
[2020-10-16 05:26] LABS: BASOPHILS % 0.4 % (0.0-2.0); EOSINOPHILS % 2.3 % (0.0-5.0); HEMOGLOBIN. 15.4 g/dL (14.0-18.0); LYMPHOCYTES % 25.8 % (20.0-50.0); MEAN CORPUSCULAR HEMOGLOBIN 32.7 pg (28.0-32.0); MEAN CORPUSCULAR VOLUME 95.8 fL (80.0-94.0); MEAN PLATELET VOLUME 7.5 fl (7.4-10.4); MONOCYTES % 10.8 % (2.0-8.0); NEUTROPHILS % 60.7 % (40.0-76.0); PLATELET 273 x1000/uL (130-400); RED BLOOD CELL COUNT 4.69 mill/uL (4.7-6.1); RED CELL DISTRIBUTION WIDTH 13.2 % (11.6-14.6)
[2020-10-16 05:31] LABS: CHLORIDE 102 mEq/L (98-107)
[2020-10-16] MEDS: SODIUM CHLORIDE 0.9% INJ 3ML FLUSH IVF SCH ×3 (06:34→23:25)
[2020-10-16] MEDS: FAMOTIDINE 20MG TABLET PO SCH ×2 (06:35→16:31)
[2020-10-16] MEDS: DEXT 5%/0.45% NACL 1000ML 1,000 ML IV SCH (09:06)
[2020-10-16] MEDS: ACETAMINOPHEN 325MG TABLET PO PRN (16:31)
[2020-10-16] MEDS: DOCUSATE SODIUM 100MG CAPSULE PO PRN (23:24)
[2020-10-17] VITALS: BP 159/75
[2020-10-17] MEDS: HYDROMORPHONE HCL/PF 2MG/ML CPJ IV PRN (01:13)
[2020-10-17] MEDS: DEXT 5%/0.45% NACL 1000ML 1,000 ML IV SCH (01:20)
[2020-10-17 04:00] VITALS: BP 152/73
[2020-10-17] MEDS: SODIUM CHLORIDE 0.9% INJ 3ML FLUSH IVF SCH (06:00)
[2020-10-17] MEDS: FAMOTIDINE 20MG TABLET PO SCH (07:10)
[2020-10-17 08:00] VITALS: BP 113/70
[2020-10-17 12:18] VITALS: BP 113/70
== END 2020-10-17 13:00 | disposition home or self-care (01) | DRG 263 ==
LOC: ER 08:28 → 8WST 11:15 → ENRESERV 13:27
PROVIDERS: ADMIT Internal Medicine; ATTEND Internal Medicine
PROC: 0FT44ZZ Resection of Gallbladder, Percutaneous Endoscopic Approach (ICD-10-PCS; principal; 2020-10-13)
PROC: 8E0W4CZ Robotic Assisted Procedure of Trunk Region, Percutaneous Endoscopic Approach (ICD-10-PCS; 2020-10-13)
DX: K80.00 Calculus of gallbladder with acute cholecystitis without obstruction (principal); K76.0 Fatty (change of) liver, not elsewhere classified; F41.9 Anxiety disorder, unspecified; K21.9 Gastro-esophageal reflux disease without esophagitis; M54.30 Sciatica, unspecified side; Z20.822 Contact with and (suspected) exposure to COVID-19; Z79.899 Other long term (current) drug therapy; Z82.49 Family history of ischemic heart disease and other diseases of the circulatory system
CPT/HCPCS: 36415; 74181; 76705; 80048; 80053; 80076; 80305; 81003; 82248; 85025; 87426; 88304; 99285; C1893; C9113; G0378; J0360; J1100; J1170; J1650; J2060; J2250; J2270; J2405; J2704; J2710; J3010; J3490; Q9957

== ENCOUNTER 2020-11-13 09:47 | Emergency (ER) | payer MEDICAID ==
[~2020-11-13] VITALS: Ht 165.1 cm; Wt 80.0 kg
[~2020-11-13 09:47] MED LIST changes: -AMOX-424 MT; -DIAZ5TAB MT; -DICL50TA9 MT; -HYDR-4009 MT; -IBUP-2028 MT; -ONDA4TAB5 MT; -OXYC-100 MT; -PROT40 MT
[2020-11-13] MEDS ORDERED: ONDANSETRON HCL 4MG/2ML INJ IV STA (10:46)
[2020-11-13] MEDS ORDERED: MORPHINE SULFATE 4 MG/ML CPJ (NOT FOR IM USE) IV STA (10:46)
[2020-11-13] MEDS ORDERED: SODIUM CHLORIDE 0.9% 1,000 ML IV ONE (11:00)
[2020-11-13] MEDS ORDERED: MORPHINE SULFATE 2 MG/ML CPJ (NOT FOR IM USE) IV NR (11:30)
[2020-11-13 11:40] LABS: BASOPHILS % 0.4 % (0.0-2.0); EOSINOPHILS % 2.6 % (0.0-5.0); HEMATOCRIT. 45.5 % (42.0-52.0); HEMOGLOBIN. 15.9 g/dL (14.0-18.0); LYMPHOCYTES % 27.8 % (20.0-50.0); MEAN CORPUSCULAR HEMOGLOBIN 32.9 pg (28.0-32.0); MEAN CORPUSCULAR VOLUME 94.4 fL (80.0-94.0); MEAN PLATELET VOLUME 7.4 fl (7.4-10.4); MONOCYTES % 9.3 % (2.0-8.0); NEUTROPHILS % 59.9 % (40.0-76.0); PLATELET 228 x1000/uL (130-400); RED BLOOD CELL COUNT 4.82 mill/uL (4.7-6.1)
[2020-11-13 11:41] LABS: CLARITY URINE CLEAR (CLEAR); COLOR URINE YELLOW (YELLOW); KETONES URINE NEGATIVE (NEGATIVE); LEUKOCYTE ESTERASE URINE NEGATIVE (NEGATIVE); NITRITE URINE NEGATIVE (NEGATIVE); OCCULT BLOOD URINE NEGATIVE (NEGATIVE); PROTEIN URINE NEGATIVE (NEGATIVE); SPECIFIC GRAVITY URINE 1.003 (1.005-1.030); UROBILINOGEN URINE 0.2 E.U./dL (0.2-1.0)
[2020-11-13 11:47] LABS: CHLORIDE 110 mEq/L (98-107)
[2020-11-13 12:10] LABS: INR 1.1; PARTIAL THROMBOPLASTIN TIME 29.3 sec (23.4-31.0); PROTHROMBIN TIME 12.1 sec (9.6-11.0)
[2020-11-13] MEDS ORDERED: IOHEXOL-300 100 ML BOTTLE ONE (13:38)
[2020-11-13] MEDS ORDERED: HYDR-4001 MT (13:44)
[2020-11-13 13:51] VITALS: BP 133/94
== END 2020-11-13 14:06 | disposition home or self-care (01) ==
LOC: ER 09:47
DX: R10.84 Generalized abdominal pain (principal); K21.9 Gastro-esophageal reflux disease without esophagitis; M54.30 Sciatica, unspecified side; Z98.890 Other specified postprocedural states
CPT/HCPCS: 36415; 71045; 74177; 80053; 81003; 83690; 85025; 85610; 85730; 86850; 86900; 86901; 93005; 96374; 96375; 99285; J2270; J2405; J7030; Q9967; Z7610

== ENCOUNTER 2020-11-29 00:22 | Inpatient (IN) | payer MEDICAID ==
[~2020-11-29] VITALS: Ht 165.1 cm; Wt 81.9 kg
[2020-11-29] VITALS (8 sets, daily range): BP systolic 136–155; BP diastolic 40–104
[~2020-11-29 00:22] MED LIST changes: +HYDR-4001 MT
[2020-11-29] MEDS ORDERED: FAMOTIDINE 20MG/2ML VIAL IV STA (01:08)
[2020-11-29] MEDS ORDERED: SODIUM CHLORIDE 0.9% 1,000 ML IV ONE (01:15)
[2020-11-29 01:22] LABS: BASOPHILS % 0.3 % (0.0-2.0); EOSINOPHILS % 1.7 % (0.0-5.0); HEMATOCRIT. 47.9 % (42.0-52.0); HEMOGLOBIN. 16.4 g/dL (14.0-18.0); LYMPHOCYTES % 59.4 % (20.0-50.0); MEAN CORPUSCULAR HEMOGLOBIN 32.4 pg (28.0-32.0); MEAN CORPUSCULAR VOLUME 94.6 fL (80.0-94.0); MONOCYTES % 6.4 % (2.0-8.0); NEUTROPHILS % 32.2 % (40.0-76.0); RED BLOOD CELL COUNT 5.06 mill/uL (4.7-6.1); RED CELL DISTRIBUTION WIDTH 13.2 % (11.6-14.6)
[2020-11-29 01:29] LABS: CHLORIDE 104 mEq/L (98-107)
[2020-11-29 01:31] LABS: INR 1.1
[2020-11-29] MEDS ORDERED: MORPHINE SULFATE 4 MG/ML CPJ (NOT FOR IM USE) IV STA (02:10)
[2020-11-29] MEDS ORDERED: ONDANSETRON HCL 4MG/2ML INJ IV STA (02:10)
[2020-11-29] MEDS ORDERED: MORPHINE SULFATE 2 MG/ML CPJ (NOT FOR IM USE) IV SCH (02:30)
[2020-11-29 04:58] LABS: MEAN PLATELET VOLUME 7.6 fl (7.4-10.4); PLATELET 205 x1000/uL (130-400)
[2020-11-29] MEDS ORDERED: ACETAMINOPHEN 325MG TABLET PO PRN (07:45)
[2020-11-29] MEDS ORDERED: DIPHENHYDRAMINE 50MG/ML VIAL IV PRN (07:45)
[2020-11-29] MEDS ORDERED: CLONIDINE 0.1MG TABLET PO PRN (07:45)
[2020-11-29] MEDS ORDERED: MORPHINE SULFATE 2 MG/ML CPJ (NOT FOR IM USE) IV PRN (07:45)
[2020-11-29] MEDS ORDERED: HYDRALAZINE 20MG/ML VIAL IV PRN (07:45)
[2020-11-29] MEDS ORDERED: MAGNESIUM/ALUMINUM HYDROXIDE/SIMETHICONE 30ML UDC PO PRN (07:45)
[2020-11-29] MEDS ORDERED: IPRATROPIUM/ALBUTEROL 0.5-3(2.5)MG/3ML NEB HHN PRN (07:45)
[2020-11-29] MEDS ORDERED: GUAIFENESIN 200MG/10ML SUGAR FREE UDC PO PRN (07:45)
[2020-11-29] MEDS: HYDROCODONE/ACETAMINOPHEN 5/325MG TABLET PO PRN (08:47)
[2020-11-29] MEDS ORDERED: DOCUSATE SODIUM 100MG CAPSULE PO PRN (09:00)
[2020-11-29] MEDS ORDERED: PANTOPRAZOLE SODIUM 40 MG/VIAL IV SCH (09:00)
[2020-11-29] MEDS: DEXT 5%/0.45% NACL 1000ML 1,000 ML IV SCH ×2 (09:59→20:31)
[2020-11-29] MEDS: LORAZEPAM 2MG/ML CPJ IV PRN (11:32)
[2020-11-29 11:51] LABS: CLARITY URINE CLEAR (CLEAR); COLOR URINE DARK YELLOW (YELLOW); KETONES URINE 1+ (NEGATIVE); LEUKOCYTE ESTERASE URINE NEGATIVE (NEGATIVE); NITRITE URINE NEGATIVE (NEGATIVE); OCCULT BLOOD URINE TRACE (NEGATIVE); PH URINE 5.5 (4.5-8.0); PROTEIN URINE TRACE (NEGATIVE); SPECIFIC GRAVITY URINE 1.021 (1.005-1.030)
[2020-11-29 12:15] LABS: *BENZODIAZEPINES SCREEN URINE NEGATIVE (NEGATIVE); *COCAINE SCREEN URINE NEGATIVE (NEGATIVE); CANNABINOID URINE SCREEN NEGATIVE (NEGATIVE); METHADONE URINE SCREEN NEGATIVE (NEGATIVE); OPIATES URINE SCREEN PRESUMTIVE POSITIVE (NEGATIVE); PHENCYCLIDINE URINE SCREEN NEGATIVE (NEGATIVE)
[2020-11-29 12:16] LABS: *AMPHETAMINES SCREEN URINE NEGATIVE (NEGATIVE); *BARBITURATES SCREEN URINE NEGATIVE (NEGATIVE)
[2020-11-29] MEDS: MORPHINE SULFATE 2 MG/ML CPJ (NOT FOR IM USE) IV PRN ×2 (16:55→21:13)
[2020-11-29] MEDS: PANTOPRAZOLE SODIUM 40 MG/VIAL IV SCH (16:55)
[2020-11-29] MEDS: SODIUM CHLORIDE 0.9% INJ 3ML FLUSH IVF SCH ×2 (16:56→21:02)
[2020-11-29] MEDS: ONDANSETRON HCL 4MG/2ML INJ IV PRN (18:24)
[2020-11-30] VITALS (11 sets, daily range): BP systolic 131–149; BP diastolic 79–99
[2020-11-30] MEDS: SODIUM CHLORIDE 0.9% INJ 3ML FLUSH IVF SCH ×3 (05:28→21:34)
[2020-11-30 07:11] LABS: BASOPHILS % 0.3 % (0.0-2.0); EOSINOPHILS % 1.3 % (0.0-5.0); HEMATOCRIT. 42.5 % (42.0-52.0); HEMOGLOBIN. 14.8 g/dL (14.0-18.0); LYMPHOCYTES % 18.1 % (20.0-50.0); MEAN CORPUSCULAR HEMOGLOBIN 32.5 pg (28.0-32.0); MEAN CORPUSCULAR VOLUME 93.3 fL (80.0-94.0); MEAN PLATELET VOLUME 7.9 fl (7.4-10.4); MONOCYTES % 8.1 % (2.0-8.0); NEUTROPHILS % 72.2 % (40.0-76.0); PLATELET 149 x1000/uL (130-400); RED BLOOD CELL COUNT 4.55 mill/uL (4.7-6.1); RED CELL DISTRIBUTION WIDTH 12.7 % (11.6-14.6)
[2020-11-30 07:36] LABS: CHLORIDE 99 mEq/L (98-107)
[2020-11-30] MEDS: PANTOPRAZOLE SODIUM 40 MG/VIAL IV SCH ×2 (07:43→16:28)
[2020-11-30] MEDS ORDERED: NALOXONE HCL 0.4MG/ML VIAL IV PRN (09:45)
[2020-11-30] MEDS: ONDANSETRON HCL 4MG/2ML INJ IV PRN ×2 (09:51→21:28)
[2020-11-30] MEDS: DEXT 5%/0.45% NACL 1000ML 1,000 ML IV SCH (09:56)
[2020-11-30] MEDS: HYDROCODONE/ACETAMINOPHEN 5/325MG TABLET PO PRN (12:13)
[2020-11-30] MEDS: MULTIVITAMINS,THER W-MINERALS TABLET PO SCH (16:27)
[2020-11-30] MEDS: THIAMINE HCL 100MG TABLET PO SCH (16:28)
[2020-11-30] MEDS: FOLIC ACID 1MG TABLET PO SCH (16:28)
[2020-12-01] VITALS (11 sets, daily range): BP systolic 114–139; BP diastolic 68–110
[2020-12-01] MEDS: DEXT 5%/0.45% NACL 1000ML 1,000 ML IV SCH ×2 (00:08→13:41)
[2020-12-01] MEDS: LORAZEPAM 2MG/ML CPJ IV PRN (01:25)
[2020-12-01] MEDS: HYDROCODONE/ACETAMINOPHEN 5/325MG TABLET PO PRN ×2 (01:26→10:27)
[2020-12-01] MEDS: SODIUM CHLORIDE 0.9% INJ 3ML FLUSH IVF SCH ×3 (05:47→22:06)
[2020-12-01 07:00] LABS: CHLORIDE 101 mEq/L (98-107)
[2020-12-01 07:19] LABS: BASOPHILS % 0.4 % (0.0-2.0); EOSINOPHILS % 3.8 % (0.0-5.0); HEMATOCRIT. 42.4 % (42.0-52.0); HEMOGLOBIN. 14.7 g/dL (14.0-18.0); LYMPHOCYTES % 26.1 % (20.0-50.0); MEAN CORPUSCULAR HEMOGLOBIN 32.6 pg (28.0-32.0); MEAN CORPUSCULAR VOLUME 93.8 fL (80.0-94.0); MEAN PLATELET VOLUME 8.3 fl (7.4-10.4); MONOCYTES % 7.2 % (2.0-8.0); NEUTROPHILS % 62.5 % (40.0-76.0); PLATELET 131 x1000/uL (130-400); RED BLOOD CELL COUNT 4.52 mill/uL (4.7-6.1); RED CELL DISTRIBUTION WIDTH 12.8 % (11.6-14.6)
[2020-12-01] MEDS: FOLIC ACID 1MG TABLET PO SCH (08:43)
[2020-12-01] MEDS: MULTIVITAMINS,THER W-MINERALS TABLET PO SCH (08:43)
[2020-12-01] MEDS: PANTOPRAZOLE SODIUM 40 MG/VIAL IV SCH ×2 (08:43→17:40)
[2020-12-01] MEDS: THIAMINE HCL 100MG TABLET PO SCH (08:43)
[2020-12-01] MEDS: ONDANSETRON HCL 4MG/2ML INJ IV PRN ×2 (08:44→20:21)
[2020-12-01] MEDS: MORPHINE SULFATE 2 MG/ML CPJ (NOT FOR IM USE) IV PRN ×3 (08:44→20:22)
[2020-12-01] MEDS ORDERED: POLYETHYLENE GLYCOL 3350 (17GM) 1 DOSE PACK PO SCH (13:00)
[2020-12-02] VITALS (9 sets, daily range): BP systolic 117–144; BP diastolic 60–100
[2020-12-02] MEDS: LORAZEPAM 2MG/ML CPJ IV PRN (01:50)
[2020-12-02] MEDS: HYDROCODONE/ACETAMINOPHEN 5/325MG TABLET PO PRN ×2 (01:50→10:38)
[2020-12-02 06:19] LABS: BASOPHILS % 0.4 % (0.0-2.0); HEMOGLOBIN. 14.6 g/dL (14.0-18.0); LYMPHOCYTES % 28.8 % (20.0-50.0); MEAN CORPUSCULAR HEMOGLOBIN 32.5 pg (28.0-32.0); MEAN CORPUSCULAR VOLUME 93.3 fL (80.0-94.0); MEAN PLATELET VOLUME 8.2 fl (7.4-10.4); MONOCYTES % 9.7 % (2.0-8.0); NEUTROPHILS % 58.1 % (40.0-76.0); PLATELET 135 x1000/uL (130-400); RED CELL DISTRIBUTION WIDTH 12.7 % (11.6-14.6)
[2020-12-02] MEDS: SODIUM CHLORIDE 0.9% INJ 3ML FLUSH IVF SCH (06:22)
[2020-12-02 06:29] LABS: CHLORIDE 104 mEq/L (98-107)
[2020-12-02] MEDS: DEXT 5%/0.45% NACL 1000ML 1,000 ML IV SCH (07:43)
[2020-12-02] MEDS: PANTOPRAZOLE SODIUM 40 MG/VIAL IV SCH (08:03)
[2020-12-02] MEDS: MULTIVITAMINS,THER W-MINERALS TABLET PO SCH (08:03)
[2020-12-02] MEDS: FOLIC ACID 1MG TABLET PO SCH (08:05)
[2020-12-02] MEDS: THIAMINE HCL 100MG TABLET PO SCH (08:05)
== END 2020-12-02 14:50 | disposition home or self-care (01) | DRG 241 ==
LOC: ER 00:22 → 3WST 04:52 → ENRESERV 07:17
PROVIDERS: ADMIT Internal Medicine; ATTEND Internal Medicine
DX: K29.71 Gastritis, unspecified, with bleeding (principal); K76.0 Fatty (change of) liver, not elsewhere classified; E66.9 Obesity, unspecified; E86.0 Dehydration; I10 Essential (primary) hypertension; M54.30 Sciatica, unspecified side; K80.20 Calculus of gallbladder without cholecystitis without obstruction; K21.9 Gastro-esophageal reflux disease without esophagitis; Z87.11 Personal history of peptic ulcer disease; Z90.49 Acquired absence of other specified parts of digestive tract; Z79.891 Long term (current) use of opiate analgesic; Z79.899 Other long term (current) drug therapy; Z79.1 Long term (current) use of non-steroidal anti-inflammatories (NSAID); Z82.49 Family history of ischemic heart disease and other diseases of the circulatory system; Z68.30 Body mass index [BMI] 30.0-30.9, adult
CPT/HCPCS: 36415; 74176; 76700; 80048; 80053; 80076; 80305; 81003; 82248; 85025; 86850; 86900; 93005; 93970; 99285; C9113; J0360; J2060; J2270; J2405; J3490; J7030

== ENCOUNTER 2021-09-06 13:08 | Emergency (ER) | payer MEDICAID ==
[~2021-09-06] VITALS: Ht 165.1 cm; Wt 79.0 kg
[~2021-09-06 13:08] MED LIST changes: -FAMO-135 MT; -IBUP-2030 MT
[2021-09-06] MEDS ORDERED: HYDROCODONE/ACETAMINOPHEN 5/325MG TABLET PO ONE (14:30)
[2021-09-06] MEDS ORDERED: LORAZEPAM 0.5MG TABLET PO ONE (14:30)
[2021-09-06 14:36] VITALS: BP 149/99
[2021-09-06] MEDS ORDERED: HYDR-4001 MT ×3 (16:08→16:28)
== END 2021-09-06 16:25 | disposition home or self-care (01) ==
LOC: ER 13:08
DX: M54.31 Sciatica, right side (principal)
CPT/HCPCS: 99283

== ENCOUNTER 2021-09-07 12:19 | Inpatient (IN) | payer MEDICAID ==
[~2021-09-07] VITALS: Ht 165.1 cm; Wt 84.4 kg
[2021-09-07] MEDS ORDERED: MORPHINE SULFATE 4 MG/ML CPJ (NOT FOR IM USE) IV STA (12:49)
[2021-09-07] MEDS ORDERED: SODIUM CHLORIDE 0.9% 1,000 ML IV ONE ×2 (13:00→17:00)
[2021-09-07 13:24] LABS: BASOPHILS % 0.7 % (0.0-2.0); EOSINOPHILS % 0.4 % (0.0-5.0); HEMATOCRIT. 46.7 % (42.0-52.0); HEMOGLOBIN. 16.4 g/dL (14.0-18.0); LYMPHOCYTES % 35.6 % (20.0-50.0); MEAN CORPUSCULAR HEMOGLOBIN 32.9 pg (28.0-32.0); MEAN CORPUSCULAR VOLUME 93.5 fL (80.0-94.0); MEAN PLATELET VOLUME 7.7 fl (7.4-10.4); MONOCYTES % 6.7 % (2.0-8.0); NEUTROPHILS % 56.6 % (40.0-76.0); PLATELET 208 x1000/uL (130-400); RED CELL DISTRIBUTION WIDTH 13.3 % (11.6-14.6)
[2021-09-07 13:31] LABS: CHLORIDE 102 mEq/L (98-107)
[2021-09-07 13:34] LABS: INR 1.1; PROTHROMBIN TIME 11.7 sec (9.6-11.0)
[2021-09-07] MEDS ORDERED: ONDANSETRON HCL 4MG/2ML INJ IV ONE (13:45)
[2021-09-07 13:51] LABS: CLARITY URINE CLEAR (CLEAR); COLOR URINE YELLOW (YELLOW); KETONES URINE NEGATIVE (NEGATIVE); LEUKOCYTE ESTERASE URINE NEGATIVE (NEGATIVE); NITRITE URINE NEGATIVE (NEGATIVE); OCCULT BLOOD URINE NEGATIVE (NEGATIVE); PH URINE 6.5 (4.5-8.0); PROTEIN URINE 1+ (NEGATIVE); SPECIFIC GRAVITY URINE 1.008 (1.005-1.030)
[2021-09-07] MEDS ORDERED: MORPHINE SULFATE 4 MG/ML CPJ (NOT FOR IM USE) IV ONE (14:30)
[2021-09-07 15:00] LABS: *AMPHETAMINES SCREEN URINE NEGATIVE (NEGATIVE); *BARBITURATES SCREEN URINE NEGATIVE (NEGATIVE); *BENZODIAZEPINES SCREEN URINE NEGATIVE (NEGATIVE); *COCAINE SCREEN URINE NEGATIVE (NEGATIVE); CANNABINOID URINE SCREEN NEGATIVE (NEGATIVE); METHADONE URINE SCREEN NEGATIVE (NEGATIVE); OPIATES URINE SCREEN PRESUMTIVE POSITIVE (NEGATIVE); PHENCYCLIDINE URINE SCREEN NEGATIVE (NEGATIVE)
[2021-09-07] MEDS ORDERED: POTASSIUM CHLORIDE 20MEQ TABLET SR PO NR (15:00)
[2021-09-07] MEDS: KCL 20MEQ/100ML PREMIX 100 ML IV NR ×3 (16:27→21:16)
[2021-09-07] MEDS ORDERED: MORPHINE SULFATE 4 MG/ML CPJ (NOT FOR IM USE) IV PRN (17:00)
[2021-09-07] MEDS ORDERED: NALOXONE HCL 0.4MG/ML VIAL IV PRN (17:15)
[2021-09-07] MEDS: PANTOPRAZOLE SODIUM 40 MG/VIAL IV SCH (17:23)
[2021-09-07 17:49] LABS: HEMOGLOBIN 15.2 g/dL (14.0-18.0)
[2021-09-07 18:07] LABS: TOTAL IRON BINDING CAPACITY 366 ug/dL (250-450)
[2021-09-07 18:39] LABS: FOLIC ACID (FOLATE) SERUM 8.1 ng/mL (>5.38)
[2021-09-07] MEDS: ONDANSETRON HCL 4MG/2ML INJ IV PRN (22:59)
[2021-09-08 00:30] VITALS: BP 142/92
[2021-09-08 00:40] VITALS: BP 142/92
[2021-09-08 02:24] LABS: BASOPHILS % 0.5 % (0.0-2.0); EOSINOPHILS % 0.9 % (0.0-5.0); HEMATOCRIT. 41.8 % (42.0-52.0); HEMOGLOBIN. 14.3 g/dL (14.0-18.0); LYMPHOCYTES % 27.3 % (20.0-50.0); MEAN CORPUSCULAR HEMOGLOBIN 32.5 pg (28.0-32.0); MEAN CORPUSCULAR VOLUME 94.9 fL (80.0-94.0); MEAN PLATELET VOLUME 7.9 fl (7.4-10.4); NEUTROPHILS % 66.3 % (40.0-76.0); PLATELET 157 x1000/uL (130-400); RED CELL DISTRIBUTION WIDTH 13.5 % (11.6-14.6)
[2021-09-08 02:25] LABS: CHLORIDE 108 mEq/L (98-107)
[2021-09-08 04:00] VITALS: BP 125/76
[2021-09-08] MEDS: ONDANSETRON HCL 4MG/2ML INJ IV PRN ×3 (06:16→21:02)
[2021-09-08 07:41] VITALS: BP 117/81
[2021-09-08] MEDS: HYDROMORPHONE HCL/PF 2MG/ML CPJ IV PRN ×3 (07:43→21:03)
[2021-09-08] MEDS: PANTOPRAZOLE SODIUM 40 MG/VIAL IV SCH ×2 (07:43→16:23)
[2021-09-08 11:52] LABS: HEMOGLOBIN 14.4 g/dL (14.0-18.0)
[2021-09-08] MEDS: SODIUM CHLORIDE 0.9% 1,000 ML IV SCH ×2 (12:34→21:02)
[2021-09-08 16:07] VITALS: BP 118/70
[2021-09-08] MEDS: SUCRALFATE 1 G/10 ML UDC PO SCH ×2 (16:23→21:02)
[2021-09-08] MEDS ORDERED: NALOXONE HCL 0.4MG/ML VIAL IV PRN (18:30)
[2021-09-08 20:00] VITALS: BP 140/79
[2021-09-08 21:55] LABS: HEMATOCRIT 40.5 % (42.0-52.0); HEMOGLOBIN 13.9 g/dL (14.0-18.0)
[2021-09-09] VITALS: BP 131/80
[2021-09-09 01:49] LABS: HEMATOCRIT 39.8 % (42.0-52.0); HEMOGLOBIN 13.7 g/dL (14.0-18.0)
[2021-09-09 04:00] VITALS: BP 140/83
[2021-09-09] MEDS: SODIUM CHLORIDE 0.9% 1,000 ML IV SCH ×2 (06:09→16:41)
[2021-09-09] MEDS: SUCRALFATE 1 G/10 ML UDC PO SCH ×4 (06:10→21:21)
[2021-09-09] MEDS: HYDROMORPHONE HCL/PF 2MG/ML CPJ IV PRN ×2 (06:12→15:34)
[2021-09-09] MEDS: ONDANSETRON HCL 4MG/2ML INJ IV PRN ×2 (06:16→15:33)
[2021-09-09 07:09] LABS: BASOPHILS % 0.2 % (0.0-2.0); EOSINOPHILS % 1.6 % (0.0-5.0); HEMOGLOBIN. 14.4 g/dL (14.0-18.0); LYMPHOCYTES % 21.3 % (20.0-50.0); MEAN CORPUSCULAR HEMOGLOBIN 32.5 pg (28.0-32.0); MEAN PLATELET VOLUME 8.1 fl (7.4-10.4); MONOCYTES % 6.8 % (2.0-8.0); NEUTROPHILS % 70.1 % (40.0-76.0); PLATELET 126 x1000/uL (130-400); RED BLOOD CELL COUNT 4.42 mill/uL (4.7-6.1); RED CELL DISTRIBUTION WIDTH 13.4 % (11.6-14.6)
[2021-09-09 07:13] LABS: CHLORIDE 98 mEq/L (98-107)
[2021-09-09 07:38] VITALS: BP 138/86
[2021-09-09] MEDS: PANTOPRAZOLE SODIUM 40 MG/VIAL IV SCH ×2 (08:55→16:41)
[2021-09-09 12:39] VITALS: BP 125/83
[2021-09-09 12:48] LABS: HEMATOCRIT 43.2 % (42.0-52.0); HEMOGLOBIN 14.8 g/dL (14.0-18.0)
[2021-09-09 16:00] VITALS: BP 133/99
[2021-09-09 20:00] VITALS: BP 134/101
[2021-09-10] VITALS: BP 137/99
[2021-09-10] MEDS: ONDANSETRON HCL 4MG/2ML INJ IV PRN ×2 (00:01→08:15)
[2021-09-10] MEDS: HYDROMORPHONE HCL/PF 2MG/ML CPJ IV PRN ×2 (00:02→08:15)
[2021-09-10 04:00] VITALS: BP 128/89
[2021-09-10] MEDS: SUCRALFATE 1 G/10 ML UDC PO SCH ×2 (06:22→12:10)
[2021-09-10] MEDS: SODIUM CHLORIDE 0.9% 1,000 ML IV SCH ×2 (06:24→13:25)
[2021-09-10 08:00] VITALS: BP 130/103
[2021-09-10] MEDS: PANTOPRAZOLE SODIUM 40 MG/VIAL IV SCH (08:15)
[2021-09-10 08:18] LABS: CHLORIDE 96 mEq/L (98-107)
[2021-09-10 08:21] LABS: BASOPHILS % 0.2 % (0.0-2.0); EOSINOPHILS % 2.3 % (0.0-5.0); HEMATOCRIT. 43.2 % (42.0-52.0); HEMOGLOBIN. 15.1 g/dL (14.0-18.0); MEAN CORPUSCULAR HEMOGLOBIN 32.8 pg (28.0-32.0); MEAN CORPUSCULAR VOLUME 93.9 fL (80.0-94.0); MEAN PLATELET VOLUME 8.3 fl (7.4-10.4); MONOCYTES % 5.2 % (2.0-8.0); NEUTROPHILS % 78.3 % (40.0-76.0); PLATELET 117 x1000/uL (130-400); RED CELL DISTRIBUTION WIDTH 13.2 % (11.6-14.6)
[2021-09-10] MEDS ORDERED: POTASSIUM CHLORIDE INJ 40 MEQ in DEXT 5% WATER 250 ML IV ONE (09:15)
[2021-09-10] MEDS: KCL 20MEQ/100ML X 2 FOR TOTAL KCL 40MEQ/200ML IV SCH ×2 (11:10→12:30)
[2021-09-10 12:00] VITALS: BP 139/100
[2021-09-10 15:17] VITALS: BP 137/95
== END 2021-09-10 15:55 | disposition home or self-care (01) | DRG 253 ==
LOC: ER 12:19 → EDBEDREQ 13:19 → 8WST 14:23 → EDBEDREQ 14:34 → EDBEDREQTM 14:34 → ENRESERV 23:14
PROVIDERS: ADMIT Hospitalist; ATTEND Hospitalist
DX: K92.0 Hematemesis (principal); E87.1 Hypo-osmolality and hyponatremia; K76.0 Fatty (change of) liver, not elsewhere classified; K92.1 Melena; K80.10 Calculus of gallbladder with chronic cholecystitis without obstruction; K21.9 Gastro-esophageal reflux disease without esophagitis; Z20.822 Contact with and (suspected) exposure to COVID-19; K57.90 Diverticulosis of intestine, part unspecified, without perforation or abscess without bleeding; M54.31 Sciatica, right side; E87.6 Hypokalemia; E80.6 Other disorders of bilirubin metabolism; F41.9 Anxiety disorder, unspecified; G89.29 Other chronic pain; N20.0 Calculus of kidney; Z28.310 Unvaccinated for COVID-19; Z90.49 Acquired absence of other specified parts of digestive tract; Z79.899 Other long term (current) drug therapy; Z82.49 Family history of ischemic heart disease and other diseases of the circulatory system; Z83.3 Family history of diabetes mellitus; Z87.891 Personal history of nicotine dependence
CPT/HCPCS: 36415; 71045; 74176; 76700; 80053; 80076; 80305; 81003; 82248; 82270; 82607; 82728; 82746; 83540; 83550; 85014; 85018; 85025; 85044; 86850; 86900; 87426; 93005; 99285; C9113; J1170; J2270; J2405; J3480; J7030

== ENCOUNTER 2021-12-26 01:12 | Emergency (ER) | payer MEDICAID ==
[~2021-12-26] VITALS: Ht 165.1 cm; Wt 87.4 kg
[2021-12-26 01:33] VITALS: BP 132/96
[2021-12-26] MEDS ORDERED: KETOROLAC 60MG/2ML VIAL IM STA (03:39)
[2021-12-26] MEDS ORDERED: METOCLOPRAMIDE HCL 10MG/2ML VIAL IM ONE (03:45)
[2021-12-26 04:21] LABS: CLARITY URINE CLEAR (CLEAR); COLOR URINE YELLOW (YELLOW); KETONES URINE NEGATIVE (NEGATIVE); LEUKOCYTE ESTERASE URINE NEGATIVE (NEGATIVE); NITRITE URINE NEGATIVE (NEGATIVE); OCCULT BLOOD URINE NEGATIVE (NEGATIVE); PROTEIN URINE NEGATIVE (NEGATIVE); SPECIFIC GRAVITY URINE 1.019 (1.005-1.030); UROBILINOGEN URINE 0.2 E.U./dL (0.2-1.0)
[2021-12-26 04:28] LABS: BASOPHILS % 0.8 % (0.0-2.0); EOSINOPHILS % 1.2 % (0.0-5.0); HEMATOCRIT. 45.5 % (42.0-52.0); HEMOGLOBIN. 15.3 g/dL (14.0-18.0); LYMPHOCYTES % 67.6 % (20.0-50.0); MEAN CORPUSCULAR VOLUME 95.1 fL (80.0-94.0); MEAN PLATELET VOLUME 7.1 fl (7.4-10.4); MONOCYTES % 5.6 % (2.0-8.0); NEUTROPHILS % 24.8 % (40.0-76.0); PLATELET 198 x1000/uL (130-400); RED BLOOD CELL COUNT 4.79 mill/uL (4.7-6.1); RED CELL DISTRIBUTION WIDTH 13.3 % (11.6-14.6)
[2021-12-26 04:58] LABS: CHLORIDE 111 mEq/L (98-107)
[2021-12-26 06:24] LABS: ETHANOL BLOOD 429 mg/dL
== END 2021-12-26 04:30 | disposition left against medical advice (07) ==
LOC: ER 01:12
DX: M54.41 Lumbago with sciatica, right side (principal); G44.89 Other headache syndrome; F10.129 Alcohol abuse with intoxication, unspecified; Y90.8 Blood alcohol level of 240 mg/100 ml or more; R03.0 Elevated blood-pressure reading, without diagnosis of hypertension
CPT/HCPCS: 36415; 80048; 80320; 81003; 85025; 96372; 99284; J1885; J2765; G0480

== ENCOUNTER 2022-01-10 07:46 | Emergency (ER) | payer MEDICAID ==
[~2022-01-10] VITALS: Ht 165.1 cm; Wt 82.0 kg
[2022-01-10 08:00] VITALS: BP 153/106
== END 2022-01-10 13:49 | disposition left against medical advice (07) ==
LOC: ER 07:46
DX: Z53.21 Procedure and treatment not carried out due to patient leaving prior to being seen by health care provider (principal); Z90.49 Acquired absence of other specified parts of digestive tract
CPT/HCPCS: 93005; 99283

== ENCOUNTER 2022-08-28 15:03 | Emergency (ER) | payer MEDICAID ==
[~2022-08-28] VITALS: Ht 162.6 cm; Wt 82.0 kg
[2022-08-28 15:16] VITALS: O2SAT 100
[2022-08-28 15:53] LABS: BASOPHILS % 0.9 % (0.0-2.0); HEMATOCRIT. 50.2 % (42.0-52.0); HEMOGLOBIN. 17.7 g/dL (14.0-18.0); LYMPHOCYTES % 20.5 % (20.0-50.0); MEAN CORPUSCULAR HEMOGLOBIN 33.3 pg (28.0-32.0); MEAN CORPUSCULAR VOLUME 94.3 fL (80.0-94.0); MEAN PLATELET VOLUME 7.1 fl (7.4-10.4); MONOCYTES % 3.8 % (2.0-8.0); NEUTROPHILS % 74.8 % (40.0-76.0); PLATELET 265 x1000/uL (130-400); RED BLOOD CELL COUNT 5.32 mill/uL (4.7-6.1); RED CELL DISTRIBUTION WIDTH 14.2 % (11.6-14.6)
[2022-08-28 16:02] LABS: CHLORIDE 98 mEq/L (98-107); INR 1.3; PROTHROMBIN TIME 13.5 sec (9.6-11.0)
[2022-08-28 16:14] LABS: ETHANOL BLOOD 289 mg/dL (-10)
[2022-08-28] MEDS ORDERED: KETOROLAC 15MG/ML VIAL IM ONE (18:45)
[2022-08-28] MEDS ORDERED: POTASSIUM CHLORIDE 20MEQ TABLET SR PO ONE (18:45)
[2022-08-28] MEDS ORDERED: ACET-2708 MT (20:11)
[2022-08-28] MEDS ORDERED: CIPR-263 MT (20:11)
[2022-08-28] MEDS ORDERED: ACETAMINOPHEN 325MG TABLET PO ONE (20:30)
[2022-08-28] MEDS ORDERED: ONDANSETRON 4MG ODT PO ONE (20:30)
[2022-08-28] MEDS ORDERED: HYDROCODONE/ACETAMINOPHEN 10/325MG TABLET PO ONE (20:30)
[2022-08-28 21:06] VITALS: BP 126/76; PULSE 86; RESP 20; TEMP 97.9
== END 2022-08-28 21:09 | disposition home or self-care (01) ==
LOC: ER 15:35
DX: K52.9 Noninfective gastroenteritis and colitis, unspecified (principal); E87.6 Hypokalemia; F10.10 Alcohol abuse, uncomplicated; F41.9 Anxiety disorder, unspecified; Z90.49 Acquired absence of other specified parts of digestive tract
CPT/HCPCS: 80053; 80320; 83880; 83690; 85025; 85610; 86850; 86900; 86901; 84484; 36415; 71045; 74176; 96372; 99285; Q0162; J1885; G0480

== ENCOUNTER 2022-09-15 02:02 | Emergency (ER) | payer MEDICAID ==
[~2022-09-15] VITALS: Ht 162.6 cm; Wt 82.0 kg
[~2022-09-15 02:02] MED LIST changes: +ACET-2708 MT; +CIPR-263 MT
[2022-09-15 02:33] VITALS: O2SAT 98
[2022-09-15 03:37] LABS: BASOPHILS % 0.9 % (0.0-2.0); EOSINOPHILS % 2.3 % (0.0-5.0); HEMATOCRIT. 45.7 % (42.0-52.0); LYMPHOCYTES % 38.4 % (20.0-50.0); MEAN CORPUSCULAR HEMOGLOBIN 33.5 pg (28.0-32.0); MEAN CORPUSCULAR VOLUME 95.5 fL (80.0-94.0); MEAN PLATELET VOLUME 6.8 fl (7.4-10.4); MONOCYTES % 4.4 % (2.0-8.0); PLATELET 317 x1000/uL (130-400); RED BLOOD CELL COUNT 4.79 mill/uL (4.7-6.1); RED CELL DISTRIBUTION WIDTH 14.1 % (11.6-14.6); WHITE BLOOD COUNT 4.3 x1000/uL (4.5-11.0)
[2022-09-15 04:02] LABS: ALANINE AMINOTRANSFERASE 46 IU/L (13-61); ALBUMIN 3.8 g/dL (3.4-5.0); ASPARTATE AMINOTRANSFERASE 102 IU/L (15-37); BILIRUBIN TOTAL 0.4 mg/dL (0.1-1.0); CARBON DIOXIDE 27 mEq/L (21-32); CHLORIDE 106 mEq/L (98-107); CREATININE 0.5 mg/dL (0.6-1.3); GLUCOSE 106 mg/dL (70-105); INDEX HEMOLYSI 1 (1-3); INDEX ICTERIC 1 (1-4); INDEX LIPEMIC 1 (1-3); PROTEIN TOTAL 8.2 g/dL (6.0-8.3); SODIUM 141 mEq/L (136-145); UREA NITROGEN BLOOD 9 mg/dL (7-21)
[2022-09-15] MEDS ORDERED: SODIUM CHLORIDE 0.9% 1,000 ML IV ONE (05:45)
[2022-09-15] MEDS ORDERED: LORAZEPAM 2MG/ML CPJ IV ONE (05:45)
[2022-09-15] MEDS ORDERED: PANTOPRAZOLE SODIUM 40 MG/VIAL IV ONE (05:45)
[2022-09-15 06:20] LABS: TROPONIN I HIGH SENSITIVITY 4 ng/L (<78)
[2022-09-15 11:27] VITALS: BP 144/88; PULSE 72; RESP 12; TEMP 98.1
== END 2022-09-15 12:33 | disposition home or self-care (01) ==
LOC: ER 02:02
DX: F41.9 Anxiety disorder, unspecified (principal); R00.2 Palpitations; Z79.899 Other long term (current) drug therapy
CPT/HCPCS: 80053; 85025; 84484; 36415; 71045; 93005; 96361; 96374; 96375; 99285; J2060; C9113; J7030; Z7610 ×4

== ENCOUNTER 2022-11-25 08:33 | Emergency (ER) | payer MEDICAID ==
[~2022-11-25] VITALS: Ht 165.1 cm; Wt 82.0 kg
[~2022-11-25 08:33] MED LIST changes: +AMLO5TAB88 PO; +CYCL10TA21 PO; +ONDA4TAB50 MT; +PANT40TA51 MT
[2022-11-25 08:39] VITALS: O2SAT 96
[2022-11-25 09:36] LABS: BASOPHILS % 0.7 % (0.0-2.0); EOSINOPHILS % 0.4 % (0.0-5.0); HEMATOCRIT. 45.3 % (42.0-52.0); HEMOGLOBIN. 15.7 g/dL (14.0-18.0); MEAN CORPUSCULAR HEMOGLOBIN 32.8 pg (28.0-32.0); MEAN CORPUSCULAR HGB CONC 34.6 g/dL (31.0-37.0); MEAN CORPUSCULAR VOLUME 94.7 fL (80.0-94.0); MEAN PLATELET VOLUME 7.1 fl (7.4-10.4); MONOCYTES % 6.2 % (2.0-8.0); NEUTROPHILS % 51.7 % (40.0-76.0); PLATELET 329 x1000/uL (130-400); RED BLOOD CELL COUNT 4.79 mill/uL (4.7-6.1); RED CELL DISTRIBUTION WIDTH 13.7 % (11.6-14.6); WHITE BLOOD COUNT 4.6 x1000/uL (4.5-11.0)
[2022-11-25 09:44] LABS: CHLORIDE 105 mEq/L (98-107); INDEX HEMOLYSI 1 (1-3); INDEX ICTERIC 1 (1-4); INDEX LIPEMIC 1 (1-3); POTASSIUM 3.7 mEq/L (3.5-5.1); SODIUM 138 mEq/L (136-145)
[2022-11-25 09:46] LABS: INR 1.1
[2022-11-25 10:04] LABS: ALANINE AMINOTRANSFERASE 34 IU/L (13-61); ASPARTATE AMINOTRANSFERASE 86 IU/L (15-37); BILIRUBIN TOTAL 1.3 mg/dL (0.1-1.0); CALCIUM 8.6 mg/dL (8.5-10.1); CARBON DIOXIDE 24 mEq/L (21-32); CREATININE 0.5 mg/dL (0.6-1.3); GLUCOSE 124 mg/dL (70-105); PROTEIN TOTAL 8.7 g/dL (6.0-8.3); T4 FREE 1.05 ng/dL (0.76-1.46); THYROID STIMULATING HORMONE 0.48 uIU/mL (0.36-3.74); TROPONIN I HIGH SENSITIVITY 4 ng/L (<78); UREA NITROGEN BLOOD 8 mg/dL (7-21)
[2022-11-25 10:06] LABS: NT PRO B-TYPE NATRIURETIC PEP < 5 pg/mL (5-125)
[2022-11-25 10:35] VITALS: BP 140/80; PULSE 116; RESP 19; TEMP 98.2
== END 2022-11-25 12:04 | disposition home or self-care (01) ==
LOC: ER 08:33
DX: R00.2 Palpitations (principal); F41.9 Anxiety disorder, unspecified; Z90.49 Acquired absence of other specified parts of digestive tract; Z98.890 Other specified postprocedural states
CPT/HCPCS: 36415; 71045; 80053; 83880; 84439; 84443; 84484; 85025; 93005; 99285